=== PATIENT | male | born 1970 | race Caucasian/White ===

== ENCOUNTER 2017-12-07 11:10 | Observation (INO) | payer BC ==
--- NOTE | 2017-12-04 12:27 | Diagnostic Imaging Report ---
PROCEDURE: Frontal and lateral views of the chest. COMPARISON: None. INDICATIONS: PRE-OPERATIVE CHEST X-RAY FOR UROLOGY SURGERY FINDINGS: Lines/tubes: None. Lungs: The lungs are well inflated and clear. There is no evidence of pneumonia or pulmonary edema. Pleura: There is no pleural effusion or pneumothorax. Heart and mediastinum: The heart and the mediastinum are normal. Bones: No acute bony abnormality. Multilevel degenerative changes of the thoracic spine. IMPRESSION: 1. No acute cardiopulmonary disease. Dictated by: Siddhartha Schreiber M.D. on 12/04/2017 at 12:30 Electronically approved by: Siddhartha Schreiber M.D. on 12/04/2017 at 12:30
[2017-12-04 12:47] LABS: ANION GAP 10.9 mmol/L (8-16); CALCIUM 9.6 mg/dL (8.4-10.2); CREATININE, SERUM 1.38 mg/dL (0.72-1.25); POTASSIUM 3.9 mmol/L (3.5-5.1)
[~2017-12-07 11:10] MED LIST: ACARBOSE25 MG PO; ATORVASTATIN CA40 MG PO; FENOFIBRATE160 MG PO; JANUMET 50-1,01 EACH PO; LOSARTAN POTAS100 MG PO; SIMVASTATIN40 MG PO; VICTOZA 3-0.6 MG/0.1 INJ
--- OUTSIDE RECORDS SUMMARY | 2017-12-07 11:13 | XMS REPORT | Clinical Summary ---
Author Author [facility] Organization [facility] Address Unknown Phone Unavailable Care Team Providers Care Bending Machine Set Up Operator Name Role Phone Les Thomas MD PCP Allergies No Known Allergies Current Medications Prescription Sig. Disp. Refills Start End Date Status Date FARXIGA 5 mg tablet 11/04/19 Active 17 simvastatin (ZOCOR) 40 MG 11/04/19 Active tablet 17 losartan (COZAAR) 100 MG 11/04/19 Active tablet 17 fenofibrate (LOFIBRA) 160 11/04/19 Active MG tablet 17 naproxen (NAPROSYN) 500 Take 1 tablet (500 mg 60 tablet 0 12/02/19 01/01/20 MG tablet total) by mouth 2 (two) 17 17 times a day with meals for 30 days. cyclobenzaprine Take 1 tablet (10 mg 20 tablet 0 12/02/19 01/01/20 (FLEXERIL) 10 mg tablet total) by mouth 2 (two) 17 17 times a day as needed for muscle spasms for up to 30 days. Active Problems Not on file Encounters Date Type Specialty Care Team Description 11/03/2017 Telephone Weight Management Anne Carr RD 11/03/2017 Documentation Weight Management Anne Carr RD pt declined to stay for appointment after 12/06/2016 Social History Tobacco Use Types Packs/Day Years Used Date Never Smoker Alcohol Use Drinks/Week oz/Week Comments No Sex Assigned at Date Recorded Not on file Last Filed Vital Signs Not on file Plan of Treatment Health Maintenance Due Date Last Done Comments INFLUENZA VACCINE 01/27/2018 Results Not on fileafter 12/06/2016 Insurance Payer Benefit Subscriber ID Type Phone Address Plan / Group BCBS BCBS xxxxxxxxxxxxxxx PPO CHOICE PPO/LALIT MEJIA PPO MED,DATA Third Other Home: [id number] [facility] [address] [place] [address]
--- OUTSIDE RECORDS SUMMARY | 2017-12-07 11:13 | XMS REPORT ---
Author Author [facility] Address Unknown Phone Unavailable Care Team Providers Care Puller Over Name Role Phone HERB MILLAN Unavailable Unavailable Problems This patient has no known problems. Allergies, Adverse Reactions, Alerts This patient has no known allergies or adverse reactions. Medications This patient has no known medications. Results Test Description Test Time Test Comments Text Results Atomic Results Result Comments CHEST 2 VIEWS 2017-12-04 12:30:00 [place] [id number] Patient Name: JOSE MAJOR MR #: [id number] : 1970 Age/Sex: 47/M Req #: [id number] Adm Physician: Ordered by: HERB MILLAN MD Report #: [id number] Location: OR Room/Bed: Procedure: [id number] DX/CHEST 2 VIEWS Exam Date: 12/04/17 Exam Time: 1200 REPORT STATUS: Signed PROCEDURE: Frontal and lateral views of the chest. COMPARISON: None. INDICATIONS: PRE- OPERATIVE CHEST X-RAY FOR UROLOGY SURGERY FINDINGS: Lines/tubes: None. Lungs: The lungs are well inflated and clear. There is no evidence of pneumonia or pulmonary edema. Pleura: There is no pleural effusion or pneumothorax. Heart and mediastinum: The heart and the mediastinum are normal. Bones: No acute bony abnormality. Multilevel degenerative changes of the thoracic spine. IMPRESSION: 1. No acute cardiopulmonary disease. Dictated by: Bridger Schreiber M.D. on 12/04/2017 at 12:30 Electronically approved by: Bridger Schreiber M.D. on 12/04/2017 at 12:30 Dictated By: BRIDGER SCHREIBER MD 1230 Transcribed By: SHAMIKA on 1230 COPY TO: HERB MILLAN MD
[2017-12-07] MEDS ORDERED: BUPIVACAINE HCL 0.5% INJ 30 ML VIAL INJ ONE (11:33)
[2017-12-07] MEDS ORDERED: BACITRACIN ZINC 15 GM OINT ONE (11:33)
[2017-12-07] MEDS ORDERED: BACITRACIN 50,000 UNIT VIAL ONE (11:34)
[2017-12-07] MEDS ORDERED: GENTAMICIN 80MG/NS 100 ML 200 ML IV ONE (11:57)
[2017-12-07] MEDS ORDERED: CLINDAMYCIN PHOS 900MG/ D5W 50 50 ML IV ONE (11:57)
[2017-12-07] MEDS ORDERED: CEFAZOLIN SOD 2 GM/D5W 50ML 50 ML IV ONE (11:58)
[2017-12-07 12:32] LABS: ANION GAP 12.4 mmol/L (8-16); BLOOD UREA NITROGEN 12 mg/dL (7-26); BUN/CREATININE RATIO 12 (6-25); CALCIUM 9.3 mg/dL (8.4-10.2); CARBON DIOXIDE 23 mmol/L (22-29); CHLORIDE 103 mmol/L (98-107); CREATININE, SERUM 1.04 mg/dL (0.72-1.25); EST GLOMERULAR FILTRATION RATE > 60 ML/MIN (60-); GLUCOSE 266 mg/dL (74-118); POTASSIUM 4.4 mmol/L (3.5-5.1); SODIUM 134 mmol/L (136-145)
[2017-12-07] MEDS ORDERED: FENTANYL CITRATE/PF 100MCG/2 ML INJ ONE (14:47)
[2017-12-07] MEDS ORDERED: MIDAZOLAM HCL 2 MG/2 ML VIAL ONE (14:47)
[2017-12-07] MEDS ORDERED: SOD CHL 0.45%/POT CHL 20MEQ 1,000 ML IV SCH (15:51)
[2017-12-07] MEDS ORDERED: NALOXONE HCL INJ 0.4 MG/ML AMP IV PRN (16:00)
[2017-12-07] MEDS ORDERED: MORPHINE SULFATE 1 MG/ML 30ML PCA IV PRN (16:00)
[2017-12-07] MEDS ORDERED: ACETAMINOPHEN 1000 MG/100 ML IV PRN (16:00)
[2017-12-07] MEDS ORDERED: DIPHENHYDRAMINE HCL INJ 50 MG/ML VIAL IM PRN (16:00)
[2017-12-07] MEDS ORDERED: DIPHENHYDRAMINE HCL 25 MG CAP PO PRN (16:00)
[2017-12-07] MEDS ORDERED: ONDANSETRON HCL INJ 2 MG/ML VIAL IV PRN (16:00)
--- OUTSIDE RECORDS SUMMARY | 2017-12-07 16:38 | XMS REPORT | Clinical Summary ---
Author Author [facility] Organization [facility] Address Unknown Phone Unavailable Care Team Providers Care Station Air Traffic Control Specialist Name Role Phone Les Thomas MD PCP [...] PPO/LALIT MEJIA PPO MED,DATA Third Other Home: [id number] [facility] [address] [place] [address]
[2017-12-07] MEDS ORDERED: DOCUSATE SODIUM 100 MG CAP PO SCH (17:00)
[2017-12-07] MEDS ORDERED: PROPOFOL IV EMULSION 10 MG/ML 20 ML VIAL ONE (18:06)
[2017-12-07] MEDS ORDERED: ONDANSETRON HCL INJ 2 MG/ML VIAL ONE (18:06)
[2017-12-07] MEDS ORDERED: DEXAMETHASONE SOD PHOS INJ 4 MG/ML VIAL ONE (18:06)
[2017-12-07] MEDS ORDERED: SEVOFLURANE INHAL SOLN 250 ML PEN BTL ONE (18:06)
[2017-12-07] MEDS ORDERED: LIDOCAINE HCL 2% LOCAL INJ 5 ML SDV VIAL INJ ONE (18:06)
[2017-12-07] MEDS ORDERED: SODIUM CHLORIDE 0.9% 1000ML 1,000 ML ONE (18:17)
[2017-12-07 18:29] VITALS: BP 129/91
[2017-12-07] MEDS ORDERED: SODIUM CHLORIDE 0.9% 1000ML 1,000 ML IV SCH (19:45)
[2017-12-07 19:53] VITALS: BP 129/91
[2017-12-07] MEDS: PIPER-TAZ 3.375 GM 50 ML IV SCH (21:24)
[2017-12-07] MEDS: CLINDAMYCIN 600MG/D5W 50ML 50 ML IV SCH (22:00)
[2017-12-08] VITALS: BP 126/82
[2017-12-08 04:00] VITALS: BP 120/84
[2017-12-08] MEDS: CLINDAMYCIN 600MG/D5W 50ML 50 ML IV SCH (05:13)
[2017-12-08] MEDS: PIPER-TAZ 3.375 GM 50 ML IV SCH (05:29)
[2017-12-08 05:33] LABS: BASOPHILS % 0.3 % (0.0-1.0); EOSINOPHILS # (AUTO) 0.2 (0.0-0.4); HEMATOCRIT 46.7 % (38.2-49.6); HEMOGLOBIN 16.5 g/dL (14.0-18.0); LYMPHOCYTES # (AUTO) 3.5 (1.0-3.2); LYMPHOCYTES % 24.4 % (18.0-39.1); MEAN CORPUSCULAR HEMOGLOBIN 30.9 pg (28-32); MEAN CORPUSCULAR HGB CONC 35.3 g/dL (31-35); MEAN CORPUSCULAR VOLUME 87.5 fL (81-99); MONOCYTES # (AUTO) 0.9 (0.2-0.8); MONOCYTES % 6.2 % (4.4-11.3); NEUTROPHILS # (AUTO) 9.8 (2.1-6.9); NEUTROPHILS % 67.8 % (38.7-80.0); PLATELET COUNT 195 x10e3/uL (140-360); RED BLOOD COUNT 5.34 x10e6/uL (4.3-5.7)
[2017-12-08 05:35] VITALS: BP 120/84
[2017-12-08 05:52] LABS: ANION GAP 11.9 mmol/L (8-16); BLOOD UREA NITROGEN 13 mg/dL (7-26); BUN/CREATININE RATIO 11 (6-25); CALCIUM 8.7 mg/dL (8.4-10.2); CARBON DIOXIDE 26 mmol/L (22-29); CHLORIDE 102 mmol/L (98-107); EST GLOMERULAR FILTRATION RATE > 60 ML/MIN (60-); GLUCOSE 261 mg/dL (74-118); POTASSIUM 3.9 mmol/L (3.5-5.1); SODIUM 136 mmol/L (136-145)
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
[2017-12-08 07:47] VITALS: BP 132/86
--- NOTE | 2018-01-06 01:34 | Discharge Summary ---
HOSPITAL COURSE: The patient came into the hospital as an elective surgery for penile implant. The patient underwent surgery by Dr. Cintron. Pina catheter was inserted. The patient did very well after the implant but did have complaint of pain. Pain was controlled with morphine and also with Zofran. Hydration was done. Patient was also on Zosyn 3.375 and clindamycin. Patient was discharged home in a stable condition on antibiotics. Patient was asked to follow up with his urologist, Dr. Cintron, and with me for uncontrolled diabetes. Patient's blood sugar was spiking very high. So, we started him back on his Victoza , fenofibrate, atorvastatin, sitagliptin, and metformin after 2 days. For further information, look into the chart. FINAL DIAGNOSES 1. Status post penile implant. 2. Uncontrolled diabetes mellitus. 3. Hypertension. 4. Hyperlipidemia. ISABELLE OSWALD MD Job#: [id number] CF
--- NOTE | 2018-02-06 00:08 | Operative Report ---
DATE OF PROCEDURE: December 07, 2017 PREOPERATIVE DIAGNOSES: 1. Organic impotence. 2. Nocturia. POSTOPERATIVE DIAGNOSES: 1. Organic impotence. 2. Nocturia. OPERATIONS PERFORMED: 1. Flexible cystourethroscopy (separate procedure performed to evaluate the urinary tract in light of the nocturia). 2. Implantation of multi-component inflatable penile prosthesis. ANESTHESIA: General. COMPLICATIONS: None. CLINICAL SUMMARY: Aron Vallejo is a young diabetic with organic impotence. He has failed nonoperative modalities including multiple oral medications and intracorporeal injections. The patient elected to proceed with surgery as planned. He is aware of the risks of bleeding, infection, injury to adjacent structures, need for additional procedures, erosion, failure, and he elected to proceed. OPERATIVE PROCEDURE IN DETAIL: Informed consent was verified. Aron Vallejo was properly identified, taken to the operating room, and placed on the operating table in supine position. Anesthesia was uneventfully begun. Careful shave was performed. The patient's genitalia were then prepared for 10 minutes by the clock and then draped in the usual sterile fashion. The flexible cystourethroscope was utilized. Flexible cystourethroscopy was performed under videoscopic monitoring. The urethra was unremarkable. Sphincteric region was normal. The prostate bed did not exhibit any significant obstruction. Panendoscopy of the urinary bladder revealed no suspicious mucosal lesions and no tumors, no stones were identified. The cystoscope was withdrawn. The Pina catheter was placed. A transverse high scrotal incision was made, carried through all layers until we exposed both corpora cavernosa. A longitudinal incision was then made in each corpus cavernosum and stay sutures were placed. We then dilated each corpus cavernosum to 13 mm with Hegar dilators. The corpora cavernosa were measured. Each had a total length of 22 cm. We utilized an 18 cm cylinder 12 mm AMS 700 CX reservoir with and a 65 mL reservoir. We preplaced the Vicryl sutures in both corpora cavernosa. We then first placed the left and then the right cylinders and each cylinder with 4 cm of rear-tip extenders. We placed the proximal portion first, and then the distal portion was placed with the assistance of the stitch. The prosthesis was then seated appropriately and each corpus cavernosum was approximated by tying down the previously placed sutures. A subdartos pouch was developed and the pump inserted into the pouch. We then followed the spermatic cord up into the internal ring. We punched through medially with the finger, and then placed a 65 mL reservoir, inflated it with 65 mm of sterile saline. We brought the 2 reservoir tubes together and performed a connection utilizing the Quick Connect system. The prosthesis was tested and appeared to be functioning appropriately. Copious irrigation was performed. We then closed the reservoir pouch with chromic suture. We then closed the incision in 4 different layers with absorbable sutures. Sterile dressings were applied. The patient was uneventfully reversed from anesthesia and taken to recovery room in stable condition. There were no complications to the procedure. He tolerated the procedure well. Plans will be to keep the patient in the hospital overnight with intravenous antibiotics, and of course life-long urological followup will continue. Job#: [id number] cc:ISABELLE OSWALD MD
== END 2017-12-08 09:42 | disposition home or self-care (01) ==
LOC: OR 11:10 → IMCU 16:36
PROVIDERS: ADMIT Urology; ATTEND Urology
DX: N52.9 Male erectile dysfunction, unspecified (principal); M21.371 Foot drop, right foot; E11.42 Type 2 diabetes mellitus with diabetic polyneuropathy; G47.33 Obstructive sleep apnea (adult) (pediatric); E11.65 Type 2 diabetes mellitus with hyperglycemia; Z72.0 Tobacco use; E29.1 Testicular hypofunction; E66.01 Morbid (severe) obesity due to excess calories; R35.1 Nocturia; Z12.5 Encounter for screening for malignant neoplasm of prostate; I10 Essential (primary) hypertension
CPT/HCPCS: 36415 ×3; 54405; 71046; 80048 ×3; 82948 ×2; 83735; 85025; 93005; 96367; C1813 ×2; G0378 ×2; J1100; J1580; J2001; J2250; J2270; J2405; J2543 ×2; J7030 ×2

== ENCOUNTER 2018-03-10 15:58 | Inpatient (IN) | payer BC ==
[~2018-03-10] VITALS: Ht 185.4 cm; Wt 108.9 kg
[2018-03-10] MEDS ORDERED: MORPHINE SULFATE INJ 4 MG/ML INJ IV STA (15:59)
[2018-03-10] MEDS ORDERED: ONDANSETRON HCL INJ 2 MG/ML VIAL IV STA (15:59)
[2018-03-10] MEDS ORDERED: DEXTROSE 50% SYRINGE 50 ML IV PRN (16:15)
[2018-03-10] MEDS ORDERED: MORPHINE SULFATE 1 MG/ML 30ML PCA IV PRN (17:30)
[2018-03-10] MEDS ORDERED: ONDANSETRON HCL INJ 2 MG/ML VIAL IV PRN (17:30)
[2018-03-10] MEDS: CLINDAMYCIN PHOS 900MG/ 50ML 50 ML IV SCH (17:35)
[2018-03-10] MEDS: SODIUM CHLORIDE 0.9% 1000ML 1,000 ML IV SCH (17:35)
[2018-03-10 17:44] LABS: BASOPHILS % 0.2 % (0.0-1.0); EOSINOPHILS % 0.2 % (0.0-6.0); HEMATOCRIT 40.9 % (38.2-49.6); HEMOGLOBIN 14.5 g/dL (14.0-18.0); LYMPHOCYTES # (AUTO) 1.4 (1.0-3.2); LYMPHOCYTES % 10.2 % (18.0-39.1); MEAN CORPUSCULAR HEMOGLOBIN 29.9 pg (28-32); MEAN CORPUSCULAR HGB CONC 35.5 g/dL (31-35); MEAN CORPUSCULAR VOLUME 84.3 fL (81-99); MONOCYTES # (AUTO) 1.4 (0.2-0.8); MONOCYTES % 10.2 % (4.4-11.3); NEUTROPHILS # (AUTO) 10.5 (2.1-6.9); NEUTROPHILS % 78.8 % (38.7-80.0); PLATELET COUNT 228 x10e3/uL (140-360); RED BLOOD COUNT 4.85 x10e6/uL (4.3-5.7)
[2018-03-10 17:50] LABS: CLARITY,URINE HAZY (CLEAR); COLOR,URINE YELLOW (YELLOW); LEUKOCYTE ESTERASE ,URINE TRACE (NEGATIVE)
[2018-03-10 17:51] LABS: BILIRUBIN,URINE NEGATIVE (NEGATIVE); KETONES,URINE 1+ (NEGATIVE); NITRITE,URINE NEGATIVE (NEGATIVE); PROTEIN,URINE DIPSTICK TRACE (NEGATIVE); URINE UROBILINOGEN 0.2 mg/dL (0.2 - 1)
[2018-03-10 18:00] LABS: BACTERIA,URINE MODERATE /HPF; RBC,URINE >50 /HPF (0-5); WBC,URINE (MAN) >50 /HPF (0-5)
[2018-03-10 18:04] LABS: ALBUMIN 2.6 g/dL (3.5-5.0); ALBUMIN/GLOBULIN RATIO 0.7 (0.8-2.0); ANION GAP 14.9 mmol/L (8-16); CALCIUM 9.5 mg/dL (8.4-10.2); CREATININE, SERUM 1.38 mg/dL (0.72-1.25); POTASSIUM 3.9 mmol/L (3.5-5.1)
[2018-03-10] MEDS ORDERED: SODIUM CHLORIDE 0.9% 1000ML 1,000 ML IV STA ×2 (18:09)
[2018-03-10] MEDS ORDERED: INSULIN REGULAR, HUMAN 100 UNIT/1 ML 3ML VIAL IV ONE (18:15)
[2018-03-10] MEDS ORDERED: INSULIN REGULAR, HUMAN 100 UNIT/1 ML 3ML VIAL SQ ONE (19:15)
[2018-03-10] MEDS ORDERED: SODIUM CHLORIDE 0.9% 50ML 50 ML ONE (19:19)
[2018-03-10] MEDS: PIPER-TAZ 3.375 GM 50 ML IV SCH ×2 (19:19→22:32)
[2018-03-10] MEDS ORDERED: IOPAMIDOL 370 MG/ML 200 ML INFUS..BTL INJ ONE (19:20)
--- NOTE | 2018-03-10 19:36 | Diagnostic Imaging Report ---
CT pelvis with contrast CPT 49098 Indication: Penile wound, infection, history of renal implant several months ago Comparison: None. Technique: 5 mm collimated axial images of the pelvis were obtained after the uneventful administration of 100 cc of low osmolar, nonionic intravenous contrast. RADIATION DOSE: Total DLP: 485.6 mGy*cm Estimated effective dose: (DLP x 0.015 x size factor) mSv CTDIvol has been reviewed. It is below the limits set by the Radiation Protocol Committee (RPC). Findings: The visualized portion of the small and large bowel are normal. The appendix is visualized and is normal. Right obturator lymph node measures 1.8 x 1.6 cm. Left obturator lymph node measures 2.1 cm. Inguinal lymph nodes are prominent, measuring up to 2.6 cm on the left and 4.0 cm on the right. The prostate gland measures 3.3 x 4.2 cm in the axial plane. Seminal vesicles are normal in morphology. The urinary bladder is normal. Pain on prosthesis is present with the reservoir in the left pelvis without surrounding fluid collection. There is skin erosion/ulceration of the pain is on the left measuring 1.4 x 0.6 x 0.9 cm. This is immediately adjacent to the prosthesis. There are several droplets of air associated with prosthesis at the perineum. There is no air elsewhere. There are small bilateral hydroceles. No evidence of air in the deep pelvis. Visualized portions of the aorta and iliac arteries demonstrate atherosclerotic calcifications without aneurysmal dilatation. Evaluation of the osseous structures demonstrates no focal osseous lesions. IMPRESSION: 1. Soft tissue ulceration of the distal penis adjacent to the prosthesis. Several droplets of air associated with the pump. No evidence of air elsewhere. 2. Prominent pelvic and inguinal lymph nodes are likely reactive. 3. No evidence of intraperitoneal abscess or fluid. Signed by: Dr. Christin Robbins MD on 03/10/2018 7:32 PM
[2018-03-10 20:23] LABS: CHOL/HDL RATIO 5.4 (3.9-4.7)
--- NOTE | 2018-03-10 20:37 | History and Physical ---
An 47-year-old male comes in with a penile implant infection. HISTORY OF PRESENTING ILLNESS: This is Mr. Aron Vallejo with a history of diabetes mellitus, with a history of hypertension, history of uncontrolled diabetes, and also, hyperlipidemia, status post penile implant for erectile dysfunction, was in his usual state of health until about 4-5 days prior to admission, the patient started to have some laceration of the penis on the lower side of the prepuce and the patient did not come to the emergency room or to the urologist, but decided to call Dr. Cintron's office on Thursday, was given an appointment 2 days later, when it was seen the patient was draining pus from the penis and also, scrotal erythema and was sent to the emergency room. PAST MEDICAL HISTORY: History of hypertension, hyperlipidemia, diabetes uncontrolled, history of neuropathy, and history of erectile dysfunction. SURGICAL HISTORY: History of recent penile prosthesis placed on December 07, 2017. REVIEW OF SYSTEMS: No fever, no chills, no flank pain. Some abdominal pain. No nausea, vomiting, diarrhea, no constipation, no rectal bleeding, no hematochezia, no hematemesis. MEDICATIONS: Patient takes 1. 25 mg 3 times a day. 2. Atorvastatin 40 mg. 3. Fenofibrate 160. 4. Victoza once a day. 5. Losartan 100. 6. Sitagliptin. 7. Metformin. 8. Janumet 50 per 1000. EXAMINATION VITALS: Temperature is 98.9, blood pressure is 142/91, and pulse of 115. HEENT: Normocephalic, atraumatic. Pupils react to light and accommodation. CV: S1, S2 normal. Regular rate and rhythm. ABDOMEN: Nontender, nondistended. PELVIS: The penis is semi-erect. Pump has been left semi-erect and has a pus dripping from the prepuce and also, scrotal cellulitis extending all the way into the perineal area. EXTREMITIES: Positive for trace edema and also, for decreased sensation in the lower extremities. LABS: The patient's white count is 13,000 with the left shift of 10.5, leukocyte of 10.2. Chemistries: Sodium 121, glucose of 767, with creatinine of 1.38, EGFR of 55. Patient's pelvic CT shows soft tissue ulceration in the distal penis adjacent to the prosthesis. Several areas no evidence of elsewhere. Prominent pelvic lymph nodes, likely reactive. No evidence of intraperitoneal abscess or fluid. MICROBIOLOGY: Blood cultures are pending. Gram stains have been sent. Urine culture has been pending too. ASSESSMENT 1. Penile prosthesis cellulitis. 2. Acute kidney injury. 3. Hypertension. 4. Hyperglycemia. 5. Pseudohyponatremia. Will continue hydrating the patient 125 mL an hour. Insulin sliding scale and also insulin drip. Will continue monitor the patient. The patient has been started on Zosyn 3.375 q.6 h. Pending cultures, further recommendation per clinical course. Patient has been advised to continue monitoring his p.o. intake in regards to his diabetes. Will continue monitoring the patient in the hospital. The patient will remain in the hospital. Possible ID consult will be done to tomorrow. Job#: [id number]
[2018-03-10] MEDS: INSULIN REGULAR, HUMAN 100 UNIT/1 ML 3ML VIAL SQ SCH (21:15)
[2018-03-10 21:30] VITALS: BP 146/81
[2018-03-10] MEDS: MORPHINE SULFATE INJ 4 MG/ML INJ IV PRN (21:48)
[2018-03-10 21:55] VITALS: BP 146/81
[2018-03-10] MEDS: INSULIN DETEMIR 100 UNIT/ML PEN SQ SCH (22:20)
[2018-03-10 23:45] VITALS: BP 136/67
[2018-03-11] VITALS (7 sets, daily range): BP systolic 116–136; BP diastolic 67–77
[2018-03-11] MEDS: CLINDAMYCIN PHOS 900MG/ 50ML 50 ML IV SCH ×3 (01:45→17:21)
[2018-03-11] MEDS: MORPHINE SULFATE INJ 4 MG/ML INJ IV PRN ×3 (01:54→19:13)
[2018-03-11] MEDS: PIPER-TAZ 3.375 GM 50 ML IV SCH ×4 (04:03→22:05)
[2018-03-11 05:38] LABS: BASOPHILS % 0.1 % (0.0-1.0); EOSINOPHILS # (AUTO) 0.1 (0.0-0.4); EOSINOPHILS % 0.8 % (0.0-6.0); HEMATOCRIT 36.9 % (38.2-49.6); LYMPHOCYTES # (AUTO) 1.8 (1.0-3.2); LYMPHOCYTES % 16.9 % (18.0-39.1); MEAN CORPUSCULAR HEMOGLOBIN 30.2 pg (28-32); MEAN CORPUSCULAR HGB CONC 35.2 g/dL (31-35); MEAN CORPUSCULAR VOLUME 85.6 fL (81-99); MONOCYTES # (AUTO) 1.4 (0.2-0.8); MONOCYTES % 12.6 % (4.4-11.3); NEUTROPHILS # (AUTO) 7.6 (2.1-6.9); NEUTROPHILS % 69.3 % (38.7-80.0); PLATELET COUNT 209 x10e3/uL (140-360); RED BLOOD COUNT 4.31 x10e6/uL (4.3-5.7)
[2018-03-11 06:11] LABS: ALANINE AMINOTRANSFERASE 8 IU/L (0-55); ALBUMIN 2.3 g/dL (3.5-5.0); ALBUMIN/GLOBULIN RATIO 0.7 (0.8-2.0); ALKALINE PHOSPHATASE 104 IU/L (40-150); ANION GAP 11.3 mmol/L (8-16); BLOOD UREA NITROGEN 12 mg/dL (7-26); BUN/CREATININE RATIO 14 (6-25); CALCIUM 8.4 mg/dL (8.4-10.2); CARBON DIOXIDE 25 mmol/L (22-29); CHLORIDE 101 mmol/L (98-107); CREATININE, SERUM 0.84 mg/dL (0.72-1.25); EST GLOMERULAR FILTRATION RATE > 60 ML/MIN (60-); GLUCOSE 201 mg/dL (74-118); POTASSIUM 3.3 mmol/L (3.5-5.1); SODIUM 134 mmol/L (136-145)
[2018-03-11] MEDS ORDERED: MORPHINE SULFATE 2 MG/ML SYR ONE (06:13)
[2018-03-11] MEDS: SODIUM CHLORIDE 0.9% 1000ML 1,000 ML IV SCH ×2 (06:18→22:14)
[2018-03-11] MEDS: ACARBOSE 25 MG TAB PO SCH ×3 (08:49→21:00)
[2018-03-11] MEDS: INSULIN REGULAR, HUMAN 100 UNIT/1 ML 3ML VIAL SQ SCH ×4 (08:50→21:59)
[2018-03-11] MEDS: FENOFIBRATE 145 MG TAB PO SCH (08:55)
[2018-03-11] MEDS: LOSARTAN POTASSIUM 100 MG TAB PO SCH (08:55)
[2018-03-11] MEDS ORDERED: NON-FORMULARY MEDICATION (Atorvastatin Calcium 40 MG) PO SCH (09:00)
[2018-03-11] MEDS ORDERED: NON-FORMULARY MEDICATION (Fenofibrate 160 MG) PO SCH (09:00)
[2018-03-11] MEDS: INSULIN DETEMIR 100 UNIT/ML PEN SQ SCH (21:58)
[2018-03-11] MEDS: ATORVASTATIN 40 MG TAB PO SCH (22:05)
[2018-03-12] VITALS (14 sets, daily range): BP systolic 110–169; BP diastolic 74–107
[2018-03-12] MEDS: MORPHINE SULFATE INJ 4 MG/ML INJ IV PRN ×2 (00:14→07:43)
[2018-03-12] MEDS: SODIUM CHLORIDE 0.9% 1000ML 1,000 ML IV SCH ×4 (01:17→21:00)
[2018-03-12] MEDS: CLINDAMYCIN PHOS 900MG/ 50ML 50 ML IV SCH ×3 (01:45→17:00)
[2018-03-12] MEDS: PIPER-TAZ 3.375 GM 50 ML IV SCH ×3 (04:45→16:00)
[2018-03-12 05:15] LABS: BASOPHILS % 0.2 % (0.0-1.0); EOSINOPHILS # (AUTO) 0.1 (0.0-0.4); EOSINOPHILS % 0.9 % (0.0-6.0); HEMATOCRIT 36.4 % (38.2-49.6); HEMOGLOBIN 12.6 g/dL (14.0-18.0); LYMPHOCYTES % 21.7 % (18.0-39.1); MEAN CORPUSCULAR HEMOGLOBIN 30.1 pg (28-32); MEAN CORPUSCULAR HGB CONC 34.6 g/dL (31-35); MEAN CORPUSCULAR VOLUME 87.1 fL (81-99); MONOCYTES % 11.1 % (4.4-11.3); NEUTROPHILS # (AUTO) 6.1 (2.1-6.9); NEUTROPHILS % 65.8 % (38.7-80.0); PLATELET COUNT 199 x10e3/uL (140-360); RED BLOOD COUNT 4.18 x10e6/uL (4.3-5.7); RED CELL DISTRIBUTION WIDTH 12.2 % (11.7-14.4)
[2018-03-12 05:35] LABS: ANION GAP 12.5 mmol/L (8-16); BLOOD UREA NITROGEN 12 mg/dL (7-26); BUN/CREATININE RATIO 15 (6-25); CALCIUM 8.9 mg/dL (8.4-10.2); CARBON DIOXIDE 26 mmol/L (22-29); CHLORIDE 103 mmol/L (98-107); EST GLOMERULAR FILTRATION RATE > 60 ML/MIN (60-); GLUCOSE 161 mg/dL (74-118); POTASSIUM 3.5 mmol/L (3.5-5.1); SODIUM 138 mmol/L (136-145)
[2018-03-12] MEDS ORDERED: MORPHINE SULFATE 2 MG/ML SYR ONE (07:40)
[2018-03-12] MEDS: ACARBOSE 25 MG TAB PO SCH ×3 (08:44→21:00)
[2018-03-12] MEDS: INSULIN REGULAR, HUMAN 100 UNIT/1 ML 3ML VIAL SQ SCH ×4 (08:44→22:00)
[2018-03-12] MEDS: FENOFIBRATE 145 MG TAB PO SCH (08:45)
[2018-03-12] MEDS: LOSARTAN POTASSIUM 100 MG TAB PO SCH (09:00)
[2018-03-12] MEDS ORDERED: KETAMINE HCL INJ 50 MG/ML 10 ML VIAL ONE (13:37)
[2018-03-12] MEDS ORDERED: FENTANYL CITRATE/PF 100MCG/2 ML INJ ONE ×2 (13:37→19:28)
[2018-03-12] MEDS ORDERED: PROPOFOL IV EMULSION 10 MG/ML 20 ML VIAL ONE (14:24)
[2018-03-12] MEDS ORDERED: LIDOCAINE HCL 2% LOCAL INJ 5 ML SDV VIAL INJ ONE (14:24)
[2018-03-12] MEDS ORDERED: ONDANSETRON HCL INJ 2 MG/ML VIAL ONE (14:24)
[2018-03-12] MEDS ORDERED: SEVOFLURANE INHAL SOLN 250 ML PEN BTL ONE (14:24)
[2018-03-12] MEDS ORDERED: ACETAMINOPHEN 1000 MG/100 ML IV ONE (14:24)
[2018-03-12] MEDS ORDERED: HYDROMORPHONE 2MG/ML 2 MG/ML ML IV PRN (15:45)
[2018-03-12] MEDS ORDERED: HYDROGEN PEROXIDE 120 ML BTL ONE (17:16)
[2018-03-12] MEDS ORDERED: BACITRACIN 50,000 UNIT VIAL ONE (17:16)
[2018-03-12] MEDS ORDERED: PIPER-TAZ 3.375 GM 50 ML ONE (17:32)
[2018-03-12] MEDS ORDERED: FLUCONAZOLE 200 MG/100 ML 100 ML IV SCH (18:00)
--- NOTE | 2018-03-12 18:05 | Consultation ---
DATE OF CONSULTATION: REASON FOR CONSULTATION: Penile implant infection. HISTORY OF PRESENT ILLNESS: This is a 47-year-old male who has history of diabetes mellitus, hypertension, neuropathy, hyperlipidemia, status post penile implant for erectile dysfunction. He was in his usual state of health and about 4 to 5 days ago he was found that he had a cut on his penis. He went to see Dr. Cintron. When he saw the patient, there was drainage coming from the penis so he was sent here for removal of the implant. Infectious disease was consulted. Patient is currently lying in bed comfortably. PAST MEDICAL HISTORY: Hypertension, hyperlipidemia, diabetes, neuropathy, and erectile dysfunction. PAST SURGICAL HISTORY: As mentioned above. Penile prosthesis placement on December 07. MEDICATIONS: Atorvastatin and metformin. REVIEW OF SYSTEMS HEENT: Negative. PULMONARY: Negative. CARDIAC: Negative. : As above. SKIN: Negative. Patient was started on clindamycin and Zosyn and surgery was consulted. PHYSICAL EXAMINATION GENERAL: He is currently alert and oriented. Does not seem to be in acute distress. VITALS: Stable, currently afebrile. HEENT: He is not icteric. NECK: Supple. CHEST: Clear. HEART: S1, S2. No murmur. ABDOMEN: Soft. Bowel sounds are present. EXTREMITIES: No edema. LABS: His culture is growing streptococcus agalactiae group B. There is also some yeast. IMPRESSION AND PLAN 1. Penile infection. Agree with clindamycin. We will discontinue Zosyn. We will add Diflucan. He has been due for surgery. 2. Diabetes, controlled. We will follow with you. Job#: [id number] AGNES
[2018-03-12] MEDS ORDERED: HYDROMORPHONE 2MG/ML 2 MG/ML ML ONE (18:24)
[2018-03-12] MEDS ORDERED: MIDAZOLAM HCL 2 MG/2 ML VIAL ONE (19:28)
[2018-03-12] MEDS ORDERED: DIPHENHYDRAMINE HCL INJ 50 MG/ML VIAL IM PRN (19:30)
[2018-03-12] MEDS ORDERED: NALOXONE HCL INJ 0.4 MG/ML AMP IV PRN (19:30)
[2018-03-12] MEDS ORDERED: HYDROMORPHONE 0.2MG/ML-SOD CHL 30ML PCA SYRINGE IV PRN (19:30)
[2018-03-12] MEDS ORDERED: ONDANSETRON HCL INJ 2 MG/ML VIAL IV PRN (19:30)
[2018-03-12] MEDS ORDERED: DIPHENHYDRAMINE HCL 25 MG CAP PO PRN (19:30)
[2018-03-12] MEDS ORDERED: MORPHINE SULFATE 1 MG/ML 30ML PCA ONE (19:35)
[2018-03-12] MEDS: FLUCONAZOLE 200 MG/100 ML 100 ML IV SCH (21:00)
[2018-03-12] MEDS: ATORVASTATIN 40 MG TAB PO SCH (21:30)
[2018-03-12] MEDS: INSULIN DETEMIR 100 UNIT/ML PEN SQ SCH (22:00)
--- NOTE | 2018-03-12 23:09 | Operative Report ---
DATE OF PROCEDURE: March 12, 2018 PREOPERATIVE DIAGNOSIS: Infected penile prosthesis. POSTOPERATIVE DIAGNOSES 1. Infected inflatable penile prosthesis. 2. Acute rapidly progressing necrotizing skin infection of the genitalia. 3. Urethral erosion. PROCEDURES PERFORMED 1. Explantation of resected inflatable penile prosthesis. 2. Debridement of necrotic skin and subcutaneous tissue. 3. Cystourethroscopy with complicated urethral catheterization. PEDIATRIC CARDIOLOGIST: Yasmani Cintron MD COMPLICATIONS: None. 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 He failed nonoperative management including a variety of medications. Due to his young age, the patient was highly motivated to obtain the penile prosthesis. He has been a diabetic and following his uneventful penile prosthesis implantation over 3 months ago, he was encouraged to follow with his primary care physician to ensure he gets optimal diabetes management. Approximately a week ago, the patient noted some discomfort on the left side of his penis. He also noted over the past week the beginning of drainage. Patient was seen in the office on Thursday afternoon. He was afebrile and he had an obvious skin infection. His urinalysis was not very remarkable, however, due to what seems as infection, the patient was immediately sent over the emergency room, so he may be placed on broad-spectrum antibiotics as we await his cultures. The initial plan was to cool off this infection which did not seem severe. In hopes of performing a salvage type procedure in conjunction with penile prosthesis explantation. The patient was seen yesterday morning and was stable. Earlier today, the patient was seen and there was mild erythema of the scrotum which was not present yesterday as well as some additional edema of the penis which was not present yesterday. The patient had already been scheduled to take to the operating room, was added to the surgery scheduled today. Immediately prior to going into the operating room, the patient's wound culture came back as group B strep. The patient has been on broad-spectrum antibiotics including Zosyn and clindamycin. The patient was brought to the operating room with the initial plan of removing the penile prosthesis probably performing a cystoscopy and should it seem appropriate, a rescue procedure might be attempted. The patient aware the risks of bleeding, infection, injury to adjacent structures, inability to place the penile prosthesis, permanent life-long impotence, and the usual attendant risks of surgery and anesthesia which he was encouraged to discuss with the anesthesiologist preoperatively. The patient understood all these risks and he elected to proceed. OPERATIVE PROCEDURE IN DETAIL: Informed consent as verified. Aron Vallejo was properly identified, taken to the operating room, placed on the operating table in the supine position. Anesthesia was uneventfully begun. The patient's genitalia were examined. There was dramatic and rapid progression of the patient's skin infection of his genitalia with relatively small wound at the left distal penile shaft, proximal to the lowe, has now progressed into wound that it encompass the left distal shaft. The ventral shaft bilaterally as well as the right distal shaft. There was what appeared to be early necrosis of the proximal glans penis. It was obvious that the prosthesis now had eroded both into the urethra from the left corpora as well as the left corpora itself seemed to be exposed. There now was a new hole in the midline scrotum which was not present this morning, draining pus. The patient's genitalia was shaved and prepared in usual sterile fashion. It was immediately obvious that a rescue procedure was not going to be possible in today's case. An incision was made through the prior scrotal incision transversely. There was exposure of the pump and there was mine pus, a culture was obtained. The pump was exposed. The reservoir tubing was cut. We followed the reservoir tubing proximally into the left groin. There was no pus along the reservoir tubing. We were able to explant the reservoir uneventfully. We then addressed the left corpora and then the right corpora. The tubing was followed from the pump to the corpora. We incised the corpora at the level where the tubing entered it, first on the left side then on the right side. This allowed explantation of the penile prosthesis along with the rear tip extenders bilaterally. There was no mine pus within the corpora cavernosa. We then copiously irrigated the wound. We initially utilized the Pulsavac with 3000 mL of fluid that had antibiotics dissolved in it. We Pulsavac the distal penile wound following debridement of all necrotic tissue. We then Pulsavac the proximal wound that we incised as well as the pocket that has the pump. We then irrigated the wound with the mixture of Betadine and hydrogen peroxide. We then irrigated with saline. We placed the Afton drain through the already existing erosion of the corpora cavernosa on each side. From the tip of the penis, this Yanick drain was brought to the middle of the corpora where the prosthesis was removed and into the proximal portion of the corpora. Thus, these Penroses were secured with skin with nylon suture. Thus, there was a Afton drain throughout the length of each corpora cavernosa. We then did flexible cystoscopy. There was obvious urethral erosion. We were able to find the urethral lumen at the level of the fossa navicularis. The urethral erosion was rather significant at this time. We then proceeded to perform cystoscopy. The urethra was otherwise unremarkable. The sphincteric region was unremarkable. There was no significant BPH at this time. Panendoscopy of bladder revealed no suspicious lesions and no tumors. Guidewire was left in place. A 20-Japanese Pina catheter was converted to a corporate counselor tip with the catheter punch and we proceeded by negotiating this catheter over the guidewire into the patient's bladder; 20 mL of water were placed into the 10 mL balloon. We then re-examined the penis, there was definite urethral erosion from the left side as well as skin erosion. There did not seem to be any urethral erosion more proximal. Xeroform and loose fitting sling were applied to the distal penile wounds. The scrotal incision was packed with iodoform gauze. Sterile dressings were applied and the patient was then went through risk of anesthesia and taken to the recovery room in stable condition. There were no complications to the procedure. The patient tolerated the procedure well. Sponge, needle, and instrument count were correct at the end of the case. Estimated blood loss was minimal. Plans will be to transfer the patient in the ICU and blood cultures and broad-spectrum antibiotics helps rely on the expertise of infectious disease proposal consultant and provide local wound care. We will follow the patient and then determine whether in the future he will be a candidate for a rescue type . Job#: [id number] VAS
[2018-03-13] VITALS (38 sets, daily range): BP systolic 115–149; BP diastolic 62–97
[2018-03-13] MEDS: SODIUM CHLORIDE 0.9% 1000ML 1,000 ML IV SCH ×3 (01:17→16:39)
[2018-03-13 04:45] LABS: BASOPHILS % 0.2 % (0.0-1.0); EOSINOPHILS % 0.4 % (0.0-6.0); HEMOGLOBIN 12.3 g/dL (14.0-18.0); LYMPHOCYTES # (AUTO) 1.3 (1.0-3.2); LYMPHOCYTES % 13.4 % (18.0-39.1); MEAN CORPUSCULAR HEMOGLOBIN 29.9 pg (28-32); MEAN CORPUSCULAR HGB CONC 34.2 g/dL (31-35); MEAN CORPUSCULAR VOLUME 87.4 fL (81-99); MONOCYTES # (AUTO) 0.9 (0.2-0.8); MONOCYTES % 9.2 % (4.4-11.3); NEUTROPHILS # (AUTO) 7.5 (2.1-6.9); NEUTROPHILS % 76.4 % (38.7-80.0); PLATELET COUNT 223 x10e3/uL (140-360); RED BLOOD COUNT 4.12 x10e6/uL (4.3-5.7); RED CELL DISTRIBUTION WIDTH 12.1 % (11.7-14.4)
[2018-03-13 05:00] LABS: ANION GAP 12.5 mmol/L (8-16); BLOOD UREA NITROGEN 9 mg/dL (7-26); BUN/CREATININE RATIO 13 (6-25); CALCIUM 8.4 mg/dL (8.4-10.2); CARBON DIOXIDE 23 mmol/L (22-29); CHLORIDE 104 mmol/L (98-107); CREATININE, SERUM 0.72 mg/dL (0.72-1.25); EST GLOMERULAR FILTRATION RATE > 60 ML/MIN (60-); GLUCOSE 147 mg/dL (74-118); POTASSIUM 3.5 mmol/L (3.5-5.1); SODIUM 136 mmol/L (136-145)
[2018-03-13] MEDS: AMPICILLIN SOD 1 GM/NS 50ML 50 ML IV SCH ×3 (05:57→12:32)
[2018-03-13] MEDS: INSULIN REGULAR, HUMAN 100 UNIT/1 ML 3ML VIAL SQ SCH ×4 (08:06→22:07)
[2018-03-13] MEDS: ACARBOSE 25 MG TAB PO SCH ×3 (08:52→21:00)
[2018-03-13] MEDS: LOSARTAN POTASSIUM 100 MG TAB PO SCH (08:52)
[2018-03-13] MEDS: FENOFIBRATE 145 MG TAB PO SCH (08:52)
[2018-03-13] MEDS: VANCOMYCIN HCL 1.25 GM in SODIUM CHLORIDE 0.9% 250ML 300 ML IV SCH (17:41)
[2018-03-13] MEDS ORDERED: HYDROMORPHONE 0.2MG/ML-SOD CHL 30ML PCA SYRINGE IV PRN (18:15)
[2018-03-13] MEDS: FLUCONAZOLE 200 MG/100 ML 100 ML IV SCH (21:52)
[2018-03-13] MEDS: ATORVASTATIN 40 MG TAB PO SCH (21:53)
[2018-03-13] MEDS: INSULIN DETEMIR 100 UNIT/ML PEN SQ SCH (22:07)
[2018-03-14] VITALS (8 sets, daily range): BP systolic 19–170; BP diastolic 70–93
[2018-03-14] MEDS: SODIUM CHLORIDE 0.9% 1000ML 1,000 ML IV SCH ×2 (04:16→13:24)
[2018-03-14] MEDS: VANCOMYCIN HCL 1.25 GM in SODIUM CHLORIDE 0.9% 250ML 300 ML IV SCH ×2 (06:05→18:08)
[2018-03-14] MEDS: INSULIN REGULAR, HUMAN 100 UNIT/1 ML 3ML VIAL SQ SCH ×4 (07:30→22:00)
[2018-03-14] MEDS: ACARBOSE 25 MG TAB PO SCH ×3 (09:00→21:00)
[2018-03-14] MEDS: FENOFIBRATE 145 MG TAB PO SCH (10:10)
[2018-03-14] MEDS: LOSARTAN POTASSIUM 100 MG TAB PO SCH (10:10)
[2018-03-14] MEDS: NICOTINE 21 MG/EA PATCH TOP SCH (12:50)
[2018-03-14] MEDS: ATORVASTATIN 40 MG TAB PO SCH (21:40)
[2018-03-14] MEDS: INSULIN DETEMIR 100 UNIT/ML PEN SQ SCH (22:00)
[2018-03-14] MEDS: FLUCONAZOLE 200 MG/100 ML 100 ML IV SCH (22:31)
[2018-03-15] VITALS (8 sets, daily range): BP systolic 145–180; BP diastolic 94–104
[2018-03-15] MEDS: SODIUM CHLORIDE 0.9% 1000ML 1,000 ML IV SCH ×4 (01:17→17:17)
[2018-03-15] MEDS: VANCOMYCIN HCL 1.25 GM in SODIUM CHLORIDE 0.9% 250ML 300 ML IV SCH (06:05)
[2018-03-15] MEDS ORDERED: KETOROLAC TROMETHAMINE 30 MG/ML VIAL IM PRN (08:00)
[2018-03-15] MEDS: ACARBOSE 25 MG TAB PO SCH ×3 (08:39→20:13)
[2018-03-15] MEDS: LOSARTAN POTASSIUM 100 MG TAB PO SCH (08:39)
[2018-03-15] MEDS: FENOFIBRATE 145 MG TAB PO SCH (08:39)
[2018-03-15] MEDS ORDERED: KETOROLAC TROMETHAMINE 30 MG/ML VIAL IV PRN (08:45)
[2018-03-15] MEDS: INSULIN REGULAR, HUMAN 100 UNIT/1 ML 3ML VIAL SQ SCH ×4 (08:55→20:13)
[2018-03-15] MEDS ORDERED: NICOTINE 21 MG/EA PATCH TOP SCH (09:00)
[2018-03-15] MEDS: FLUCONAZOLE 200 MG/100 ML 100 ML IV SCH (09:57)
[2018-03-15] MEDS: NICOTINE 21 MG/EA PATCH TOP SCH (12:18)
[2018-03-15] MEDS: CLINDAMYCIN 600MG / 50ML 50 ML IV SCH ×2 (14:15→21:34)
[2018-03-15] MEDS: HYDRALAZINE HCL 20 MG/ML VIAL IV PRN (20:02)
[2018-03-15] MEDS: ATORVASTATIN 40 MG TAB PO SCH (20:13)
[2018-03-15] MEDS: INSULIN DETEMIR 100 UNIT/ML PEN SQ SCH (20:13)
[2018-03-15] MEDS ORDERED: FUROSEMIDE INJ 10 MG/ML 2 ML VIAL IV NR (22:00)
[2018-03-15] MEDS ORDERED: ACETAMINOPHEN 325 MG TAB PO PRN (22:00)
[2018-03-15] MEDS ORDERED: AMLODIPINE BESYLATE 10 MG TAB PO NR (22:00)
[2018-03-16] VITALS (8 sets, daily range): BP systolic 135–169; BP diastolic 85–102
[2018-03-16] MEDS: SODIUM CHLORIDE 0.9% 1000ML 1,000 ML IV SCH (01:17)
[2018-03-16] MEDS: HYDRALAZINE HCL 20 MG/ML VIAL IV PRN (04:18)
[2018-03-16 05:45] LABS: BASOPHILS % 0.3 % (0.0-1.0); EOSINOPHILS # (AUTO) 0.1 (0.0-0.4); EOSINOPHILS % 1.3 % (0.0-6.0); HEMATOCRIT 40.1 % (38.2-49.6); LYMPHOCYTES # (AUTO) 2.2 (1.0-3.2); LYMPHOCYTES % 20.8 % (18.0-39.1); MEAN CORPUSCULAR HEMOGLOBIN 29.7 pg (28-32); MEAN CORPUSCULAR HGB CONC 34.9 g/dL (31-35); MEAN CORPUSCULAR VOLUME 85.1 fL (81-99); MONOCYTES # (AUTO) 0.8 (0.2-0.8); MONOCYTES % 7.7 % (4.4-11.3); NEUTROPHILS # (AUTO) 7.4 (2.1-6.9); NEUTROPHILS % 68.8 % (38.7-80.0); PLATELET COUNT 364 x10e3/uL (140-360); RED BLOOD COUNT 4.71 x10e6/uL (4.3-5.7); RED CELL DISTRIBUTION WIDTH 11.9 % (11.7-14.4)
[2018-03-16] MEDS: CLINDAMYCIN 600MG / 50ML 50 ML IV SCH ×3 (06:00→21:53)
[2018-03-16 06:05] LABS: ANION GAP 14.3 mmol/L (8-16); BLOOD UREA NITROGEN 6 mg/dL (7-26); BUN/CREATININE RATIO 8 (6-25); CARBON DIOXIDE 25 mmol/L (22-29); CHLORIDE 104 mmol/L (98-107); CREATININE, SERUM 0.77 mg/dL (0.72-1.25); EST GLOMERULAR FILTRATION RATE > 60 ML/MIN (60-); GLUCOSE 142 mg/dL (74-118); POTASSIUM 3.3 mmol/L (3.5-5.1); SODIUM 140 mmol/L (136-145)
[2018-03-16] MEDS: ACARBOSE 25 MG TAB PO SCH ×3 (08:16→20:05)
[2018-03-16] MEDS: LOSARTAN POTASSIUM 100 MG TAB PO SCH (08:16)
[2018-03-16] MEDS: FENOFIBRATE 145 MG TAB PO SCH (08:16)
[2018-03-16] MEDS: INSULIN REGULAR, HUMAN 100 UNIT/1 ML 3ML VIAL SQ SCH ×4 (08:28→20:15)
[2018-03-16] MEDS: LORATADINE 10 MG TAB PO SCH (09:47)
[2018-03-16] MEDS: FLUCONAZOLE 200 MG/100 ML 100 ML IV SCH (10:59)
[2018-03-16] MEDS ORDERED: ACETAMIN/BUTALBITAL/CAFFEINE TAB PO ONE (12:00)
[2018-03-16] MEDS: NICOTINE 21 MG/EA PATCH TOP SCH (12:05)
[2018-03-16] MEDS: ATORVASTATIN 40 MG TAB PO SCH (20:14)
[2018-03-16] MEDS: INSULIN DETEMIR 100 UNIT/ML PEN SQ SCH (20:16)
[2018-03-16] MEDS ORDERED: SODIUM CHLORIDE 0.9% 250ML 250 ML ONE (23:11)
[2018-03-17] VITALS: BP 137/66
[2018-03-17 04:00] VITALS: BP 150/96
[2018-03-17 06:01] LABS: BASOPHILS % 0.3 % (0.0-1.0); EOSINOPHILS # (AUTO) 0.2 (0.0-0.4); HEMATOCRIT 41.9 % (38.2-49.6); HEMOGLOBIN 14.3 g/dL (14.0-18.0); LYMPHOCYTES # (AUTO) 2.7 (1.0-3.2); LYMPHOCYTES % 24.2 % (18.0-39.1); MEAN CORPUSCULAR HEMOGLOBIN 29.5 pg (28-32); MEAN CORPUSCULAR HGB CONC 34.1 g/dL (31-35); MEAN CORPUSCULAR VOLUME 86.6 fL (81-99); MONOCYTES # (AUTO) 0.8 (0.2-0.8); MONOCYTES % 7.6 % (4.4-11.3); NEUTROPHILS # (AUTO) 7.2 (2.1-6.9); NEUTROPHILS % 65.2 % (38.7-80.0); PLATELET COUNT 442 x10e3/uL (140-360); RED BLOOD COUNT 4.84 x10e6/uL (4.3-5.7); RED CELL DISTRIBUTION WIDTH 11.9 % (11.7-14.4)
[2018-03-17 06:24] LABS: ANION GAP 15.3 mmol/L (8-16); BLOOD UREA NITROGEN 8 mg/dL (7-26); BUN/CREATININE RATIO 8 (6-25); CALCIUM 9.7 mg/dL (8.4-10.2); CARBON DIOXIDE 27 mmol/L (22-29); CHLORIDE 102 mmol/L (98-107); CREATININE, SERUM 1.01 mg/dL (0.72-1.25); EST GLOMERULAR FILTRATION RATE > 60 ML/MIN (60-); GLUCOSE 115 mg/dL (74-118); POTASSIUM 4.3 mmol/L (3.5-5.1); SODIUM 140 mmol/L (136-145)
[2018-03-17] MEDS: CLINDAMYCIN 600MG / 50ML 50 ML IV SCH ×2 (06:35→14:00)
[2018-03-17] MEDS ORDERED: ACETAMIN/BUTALBITAL/CAFFEINE TAB PO PRN (06:45)
[2018-03-17] MEDS: INSULIN REGULAR, HUMAN 100 UNIT/1 ML 3ML VIAL SQ SCH ×3 (07:30→16:19)
[2018-03-17 08:04] VITALS: BP 143/93
[2018-03-17] MEDS: LORATADINE 10 MG TAB PO SCH (08:19)
[2018-03-17] MEDS: LOSARTAN POTASSIUM 100 MG TAB PO SCH (08:19)
[2018-03-17] MEDS: FLUCONAZOLE 200 MG/100 ML 100 ML IV SCH (08:19)
[2018-03-17] MEDS: FENOFIBRATE 145 MG TAB PO SCH (08:19)
[2018-03-17] MEDS: ACARBOSE 25 MG TAB PO SCH ×2 (08:19→14:01)
[2018-03-17 12:08] VITALS: BP 135/90
[2018-03-17] MEDS: NICOTINE 21 MG/EA PATCH TOP SCH (12:12)
[2018-03-17 16:04] VITALS: BP 137/91
[2018-03-17] MEDS ORDERED: HYDROMORPHONE 2MG/ML 2 MG/ML ML IV PRN (16:45)
== END 2018-03-17 20:45 | DRG 674 ==
LOC: ER 15:58 → ERHOLD 17:39 → MED/SURG3 21:24 → ICU 03-12 20:45 → MED/SURG 03-13 15:24
PROVIDERS: ADMIT Family Medicine; ATTEND Family Medicine
PROC: 0JBB0ZZ Excision of Perineum Subcutaneous Tissue and Fascia, Open Approach (ICD-10-PCS; principal; 2018-03-12 15:00)
PROC: 0VPS0JZ Removal of Synthetic Substitute from Penis, Open Approach (ICD-10-PCS; 2018-03-12 15:00)
DX: T83.61XA Infection and inflammatory reaction due to implanted penile prosthesis, initial encounter (principal); N17.9 Acute kidney failure, unspecified; B37.49 Other urogenital candidiasis; N48.22 Cellulitis of corpus cavernosum and penis; I10 Essential (primary) hypertension; E78.5 Hyperlipidemia, unspecified; E11.42 Type 2 diabetes mellitus with diabetic polyneuropathy; E11.65 Type 2 diabetes mellitus with hyperglycemia; Z79.84 Long term (current) use of oral hypoglycemic drugs; B95.7 Other staphylococcus as the cause of diseases classified elsewhere; G47.33 Obstructive sleep apnea (adult) (pediatric); N36.8 Other specified disorders of urethra; R31.29 Other microscopic hematuria; E87.5 Hyperkalemia
CPT/HCPCS: 36415; 72193; 80048; 80053; 80061; 80202; 81001; 82948; 83036; 85025; 87040; 87071; 87075; 87086; 87205; 96372; 99284; J0290; J0360; J1450; J1885; J1940; J2001; J2250; J2270; J2405; J2543; J3370; J7030; J7050; Q9967

== ENCOUNTER → 2018-05-14 | Day surgery (SDC) | payer BC ==
[2018-05-13 11:43] LABS: BASOPHILS % 0.4 % (0.0-1.0); EOSINOPHILS # (AUTO) 0.2 (0.0-0.4); EOSINOPHILS % 2.4 % (0.0-6.0); HEMATOCRIT 38.2 % (38.2-49.6); HEMOGLOBIN 13.1 g/dL (14.0-18.0); LYMPHOCYTES # (AUTO) 3.3 (1.0-3.2); LYMPHOCYTES % 39.2 % (18.0-39.1); MEAN CORPUSCULAR HGB CONC 34.3 g/dL (31-35); MEAN CORPUSCULAR VOLUME 87.4 fL (81-99); MONOCYTES # (AUTO) 0.6 (0.2-0.8); MONOCYTES % 6.6 % (4.4-11.3); NEUTROPHILS # (AUTO) 4.2 (2.1-6.9); PLATELET COUNT 297 x10e3/uL (140-360); RED BLOOD COUNT 4.37 x10e6/uL (4.3-5.7); RED CELL DISTRIBUTION WIDTH 14.3 % (11.7-14.4)
--- NOTE | 2018-05-13 11:44 | Diagnostic Imaging Report ---
EXAMINATION: PA and lateral views of the chest. COMPARISON: None CLINICAL HISTORY: Preoperative study for urethral surgery DISCUSSION: Lungs are well-inflated. No focal airspace consolidation, pleural effusion, or pneumothorax. Cardiomediastinal contour and pulmonary vasculature are within normal limits. No pulmonary edema. No acute osseous abnormality. IMPRESSION: No acute cardiopulmonary abnormalities. Signed by: Dr. Jose Antonio Paz M.D. on 05/13/2018 11:41 AM
[2018-05-13 12:08] LABS: ANION GAP 11.6 mmol/L (8-16); BLOOD UREA NITROGEN 10 mg/dL (7-26); BUN/CREATININE RATIO 12 (6-25); CALCIUM 8.4 mg/dL (8.4-10.2); CARBON DIOXIDE 24 mmol/L (22-29); CHLORIDE 103 mmol/L (98-107); CREATININE, SERUM 0.86 mg/dL (0.72-1.25); EST GLOMERULAR FILTRATION RATE > 60 ML/MIN (60-); GLUCOSE 138 mg/dL (74-118); POTASSIUM 3.6 mmol/L (3.5-5.1); SODIUM 135 mmol/L (136-145)
[~2018-05-14] MED LIST changes: +AMPICILLIN SOD 1 GM/NS 50ML 50 ML IV ONE; +DEXAMETHASONE SOD PHOS INJ 4 MG/ML VIAL ONE; +FENTANYL CITRATE/PF 100MCG/2 ML INJ ONE; +GENTAMICIN 80MG/NS 100 ML 100 ML IV ONE; +IOPAMIDOL 610MG/1ML 300 MG/ML VIAL IV ONE; +LEVEMIR100 UNIT/1 SC; +LIDOCAINE HCL 2% LOCAL INJ 5 ML SDV VIAL INJ ONE; +MIDAZOLAM HCL 2 MG/2 ML VIAL ONE; +ONDANSETRON HCL INJ 2 MG/ML VIAL ONE; +PROPOFOL IV EMULSION 10 MG/ML 20 ML VIAL ONE; +SEVOFLURANE INHAL SOLN 250 ML PEN BTL ONE
--- OUTSIDE RECORDS SUMMARY | 2018-05-14 05:12 | XMS REPORT | Clinical Summary ---
Author Author [facility] Organization [facility] Address Unknown Phone Unavailable Care Team Providers Care Brake Lining Curer Name Role Phone Les Thomas MD PCP Allergies No Known Allergies Medications End Date Status Medication Sig Dispensed Refills Start Date Active FARXIGA 5 mg tablet 0 7 Active simvastatin (ZOCOR) 40 MG 0 tablet 7 Active losartan (COZAAR) 100 MG 0 tablet 7 Active fenofibrate (LOFIBRA) 160 0 MG tablet 7 Active Problems Not on file Encounters Care Team Description Date Type Specialty Anne Carr RD 11/03/2017 Telephone Weight Management Anne Carr RD pt declined to stay for appointment 11/03/2017 Documentation Weight Management after 05/13/2017 Social History Date Tobacco Use Types Packs/Day Years Used Never Smoker Alcohol Use Drinks/Week oz/Week Comments No Sex Assigned at Date Recorded Not on file Industry Job Start Date Occupation Not on file Not on file Not on file Travel End Travel History Travel Start No recent travel history available. Last Filed Vital Signs Not on file Plan of Treatment Health Maintenance Due Date Last Done Comments MMR VACCINES (1 - 1972 Standard series) VARICELLA VACCINES (1984 2 - 2-dose adolescent series) INFLUENZA VACCINE 01/27/2018 HEPATITIS B VACCINES Aged Out No longer eligible based on patient's age to complete this topic IPV VACCINES Aged Out No longer eligible based on patient's age to complete this topic MENINGOCOCCAL VACCINE Aged Out No longer eligible based on patient's age to complete this topic Results Not on fileafter 05/13/2017 Insurance Payer Benefit Subscriber ID Type Phone Address Plan / Group BCBS BCBS xxxxxxxxxxxxxxx PPO CHOICE PPO/LALIT MEJIA PPO MED,DATA Third Other [phone] [id number] [employer] ([address]) [address] [place] [address]
[2018-05-14 10:10] VITALS: BP 137/91
--- NOTE | 2018-05-15 05:15 | Operative Report ---
DATE OF PROCEDURE: May 14, 2018 PREOPERATIVE DIAGNOSIS: Complicated urinary tract infection. POSTOPERATIVE DIAGNOSES 1. Complicated urinary tract infection. 2. Distal ureteral stricture. OPERATIONS PERFORMED 1. Cystoscopy with calibration and dilation of fossa navicularis stricture (separate procedure performed for the diagnosis of stricture). 2. Cystourethroscopy with bilateral ureteral catheterization and retrograde ureteropyelography (separate procedure performed for the urinary tract infections). 3. Interpretation of retrograde ureteropyelography. 4. Supervision of fluoroscopy, no radiologist present. ANESTHESIA: General. COMPLICATIONS: None. CLINICAL SUMMARY: Aron Vallejo is a complicated 48-year-old man who underwent implantation of an inflatable penile prosthesis. He was followed up at the 1-month and 2-month interval and the patient's implant is completely healed. He re-presented in followup more than 3 months postoperatively. He has been using his prosthesis and was functioning normally. He had visible cellulitis and was sent for admission. During the admission course despite broad-spectrum antibiotics, the patient's cellulitis had progressed to abscess and infection surrounding the pump in the scrotum and surrounding the distal tip of the penis. This was a very fast and dangerously progressing infection. The patient was taken to the operating room emergently; at which point in time incision and drainage was performed as well as explantation of all components of the inflatable penile prosthesis. 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 These 2 fistulae were located laterally at 3 o'clock and 9 o'clock position right at the level of the lowe. Following explantation, the patient was transferred to the [facility] for intravenous antibiotics as well as local wound care. The patient's fistula from the right seemed to close, the left one appeared to be closed and the patient's Pina catheter was removed and he had been voiding adequately. There has not been hematuria or urinary tract infection symptomatology. OPERATIVE PROCEDURE IN DETAIL: Informed consent was verified. Aron Vallejo was properly identified, taken to operating room, placed on the cystoscopy table in supine position, and anesthesia was uneventfully begun. The patient was then carefully gently repositioned in the dorsal lithotomy position and all pressure points were well padded. His genitalia were prepped and draped in usual sterile fashion and 22.5-Austrian cystoscope sheath with visual obturator was inserted into the patient's urethral meatus and then there was a stricture at the fossa navicularis. We calibrated this stricture to approximately 18-Austrian in size and dilated progressively to 28-Austrian in size. We then were able to place the cystoscope sheath with direct vision easily into the patient's urethra. The remainder of the urethra exhibited no suspicious lesions and no scar tissue. The sphincteric region was normal. The prostate bed was unremarkable. Panendoscopy of the bladder revealed grade 1 trabeculations, but no tumors, no stones, and no diverticula. Normally positioned and configured ureteral orifices were identified. An 8-Austrian catheter was used to connect each ureter and retrograde ureteral pyelograms were performed. Interpretation of retrograde ureteropyelography: Contrast was instilled in retrograde fashion bilaterally. There were no tumors, no stones, and no diverticula. Unobstructed drainage was observed bilaterally fluoroscopically. The patient's bladder was drained. Cystoscope was withdrawn. A Belladonna and Opium suppository was placed revealing a 20 g prostate, smooth, non-fluctuant without any nodules. The patient was then uneventfully reversed from anesthesia and taken to the recovery room in stable condition. Explicit postoperative instructions were given. We will follow the patient up in the office in 3 to 4 weeks; at which point in time we will plan uroflowmetry and bladder ultrasonography. Job#: [id number] REJI
== END | disposition home or self-care (01) ==
LOC: OR 05:09
PROVIDERS: ATTEND Urology
DX: N39.0 Urinary tract infection, site not specified (principal); N35.819 Other urethral stricture, male, unspecified site; R31.29 Other microscopic hematuria; N52.9 Male erectile dysfunction, unspecified; E29.1 Testicular hypofunction; I10 Essential (primary) hypertension; E78.5 Hyperlipidemia, unspecified; E11.9 Type 2 diabetes mellitus without complications; Z79.84 Long term (current) use of oral hypoglycemic drugs; Z79.4 Long term (current) use of insulin; G47.30 Sleep apnea, unspecified; E66.9 Obesity, unspecified; Z01.810 Encounter for preprocedural cardiovascular examination; Z01.812 Encounter for preprocedural laboratory examination; Z01.818 Encounter for other preprocedural examination
CPT/HCPCS: 36415 ×2; 52281; 71046; 74420; 80048; 82948; 85025; 93005; C1758; J0290; J1100; J1580; J2001; J2250; J2405; J2704; Q9967

== ENCOUNTER → 2022-01-03 | Day surgery (SDC) | payer BC ==
[~2022-01-03] MED LIST changes: -AMPICILLIN SOD 1 GM/NS 50ML 50 ML IV ONE; +BACTRIM DS TAB1 EACH PO; -DEXAMETHASONE SOD PHOS INJ 4 MG/ML VIAL ONE; -FENTANYL CITRATE/PF 100MCG/2 ML INJ ONE; -GENTAMICIN 80MG/NS 100 ML 100 ML IV ONE; +IBUPROFEN200 MG PO; +INSULIN REGULAR, HUMAN 100 UNIT/1 ML ONE; -IOPAMIDOL 610MG/1ML 300 MG/ML VIAL IV ONE; -LIDOCAINE HCL 2% LOCAL INJ 5 ML SDV VIAL INJ ONE; -MIDAZOLAM HCL 2 MG/2 ML VIAL ONE; -ONDANSETRON HCL INJ 2 MG/ML VIAL ONE; -PROPOFOL IV EMULSION 10 MG/ML 20 ML VIAL ONE; -SEVOFLURANE INHAL SOLN 250 ML PEN BTL ONE; +SODIUM CHLORIDE 0.9% 250ML 250 ML ONE; +ULTRACET TABLE1 EACH PO; +Vancomycin IV 1 GM VIAL ONE
[2022-01-03 12:40] LABS: BASOPHILS % 0.3 % (0.0-1.0); EOSINOPHILS # (AUTO) 0.1 (0.0-0.4); EOSINOPHILS % 0.7 % (0.0-6.0); HEMATOCRIT 50.7 % (38.2-49.6); HEMOGLOBIN 17.5 g/dL (14.0-18.0); MEAN CORPUSCULAR HEMOGLOBIN 30.3 pg (28-32); MEAN CORPUSCULAR HGB CONC 34.5 g/dL (31-35); MEAN CORPUSCULAR VOLUME 87.9 fL (81-99); MONOCYTES # (AUTO) 0.5 (0.2-0.8); NEUTROPHILS # (AUTO) 6.4 (2.1-6.9); NEUTROPHILS % 63.7 % (38.7-80.0); PLATELET COUNT 315 x10e3/uL (140-360); RED BLOOD COUNT 5.77 x10e6/uL (4.3-5.7); RED CELL DISTRIBUTION WIDTH 12.2 % (11.7-14.4)
[2022-01-03 13:03] LABS: CALCIUM 8.6 mg/dL (8.4-10.2); CREATININE, SERUM 0.86 mg/dL (0.72-1.25)
[2022-01-03 15:20] VITALS: BP 125/83
== END | disposition home or self-care (01) ==
LOC: OR 12:00
PROVIDERS: ATTEND Surgery
DX: L02.214 Cutaneous abscess of groin (principal); M79.9 Soft tissue disorder, unspecified; G47.33 Obstructive sleep apnea (adult) (pediatric); E11.9 Type 2 diabetes mellitus without complications; I10 Essential (primary) hypertension; M54.9 Dorsalgia, unspecified; Z20.822 Contact with and (suspected) exposure to COVID-19
CPT/HCPCS: 0223U; 10060; 27047; 36415; 80048; 82948; 85025; 87071; 87075; 87205; 88304; 93005; J3370; J7050; J1817